=== PATIENT | male | born 1955 | race Caucasian/White ===

== ENCOUNTER 2019-07-13 12:23 | Outpatient (CLI) | payer OTHER ==
--- NOTE | 2019-07-13 12:56 | XRAY Report ---
Reason: 5th finger dislocation R hand Procedure Date: 07/13/2019 Accession Number: [id number] / [id number] Procedure: XRN - Finger(s) RT CPT Code: FULL RESULT: EXAM: RIGHT FIFTH DIGIT RADIOGRAPHY EXAM DATE: 07/13/2019 12:49 PM. CLINICAL HISTORY: 5th finger dislocation R hand. COMPARISON: HAND 3 VIEW RT 07/13/2019 12:46 PM. TECHNIQUE: 3 views. FINDINGS: Bones: No acute fracture. No bone lesion. Joints: Osteoarthritis in the fifth distal interphalangeal joint with joint space loss, subchondral cystic change and osteophytosis, moderate. Osteophyte lipping in the fifth proximal interphalangeal joint with preserved joint space. No dislocation. Soft Tissues: Calcifications in the soft tissues adjacent to the fifth distal phalanx diaphysis and tuft IMPRESSION: 1. No acute fracture or dislocation. 2. Moderate fifth distal interphalangeal joint osteoarthritis. 3. Soft tissue calcifications around the fifth distal phalanx, may be sequela of old trauma RADIA
--- NOTE | 2019-07-13 12:58 | XRAY Report ---
Reason: LATERAL R 5TH FINGER DISLOCATION Procedure Date: 07/13/2019 Accession Number: [id number] / [id number] Procedure: XRN - Hand 3 View RT CPT Code: FULL RESULT: EXAM: RIGHT HAND RADIOGRAPHY EXAM DATE: 07/13/2019 12:46 PM. CLINICAL HISTORY: LATERAL R 5TH FINGER DISLOCATION. COMPARISON: None. TECHNIQUE: 3 views. FINDINGS: Bones: No acute fracture. Posttraumatic appearance of the fifth distal phalanx tuft. Subchondral cyst in the second proximal middle phalanx heads. Joints: No dislocation. Osteoarthritis in the fifth distal interphalangeal joint with joint space loss and osteophytosis. First interphalangeal joint osteophytosis with preserved joint space. Degenerative distal radial ulnar joint. Soft Tissues: Soft tissue calcifications adjacent to the fifth distal phalanx IMPRESSION: 1. No acute fracture or dislocation. 2. Old posttraumatic appearance to the fifth distal phalanx tuft with surrounding soft tissue calcification. 3. Moderate fifth distal interphalangeal joint osteoarthritis. 4. Degenerative distal radial ulnar joint RADIA
== END 2019-07-13 12:24 | disposition home or self-care (01) ==
LOC: DI.N 12:23
PROVIDERS: ATTEND Family Medicine
DX: M19.041 Primary osteoarthritis, right hand (principal); M19.031 Primary osteoarthritis, right wrist
CPT/HCPCS: 73140

== ENCOUNTER 2020-04-08 14:44 | Outpatient (CLI) | payer OTHER ==
--- NOTE | 2020-04-08 16:58 | XRAY Report ---
Reason: LT FOOT PAIN Procedure Date: 04/08/2020 Accession Number: [id number] / [id number] Procedure: XR - Foot 3 View LT CPT Code: Final Report FULL RESULT: PROCEDURE: Foot 3 View LT INDICATIONS: LT FOOT PAIN TECHNIQUE: 3 views of the foot were acquired. COMPARISON: None. FINDINGS: Bones: No fractures or dislocations. There is minimal degeneration at the first metatarsophalangeal joint with minimal joint space narrowing. No suspicious bony lesions. Soft tissues: No tibiotalar joint effusion. Achilles tendon appears intact with small calcifications distally compatible with small enthesophytes or calcific tendinitis. IMPRESSION: 1. No fracture or dislocation. 2. Minimal degeneration at the first metatarsophalangeal joint. 3. Small enthesophytes or calcific tendinitis in the distal Achilles tendon. Reviewed by: Smooth Callahan MD on 04/08/2020 4:57 PM PDT Approved by: Smooth Callahan MD on 04/08/2020 4:57 PM PDT Station ID: [id number]
== END 2020-04-08 14:45 | disposition home or self-care (01) ==
LOC: DI 14:44
PROVIDERS: ATTEND Physician Assistant Medical
DX: M19.072 Primary osteoarthritis, left ankle and foot (principal); M65.272 Calcific tendinitis, left ankle and foot